=== PATIENT | female | born 1965 | race Caucasian/White ===

== ENCOUNTER → 2017-12-21 | Outpatient (CLI) | payer OTHER ==
[~2017-12-21] MED LIST: OPTIRAY 300 IV PRN; PATIENT'S ALLERGY INFO NEEDS ENTERED SCH
--- NOTE | 2017-12-21 14:22 | DIAGNOSTIC IMAGING REPORT ---
IVP W/OR W/O TOMOGRAMS CLINICAL HISTORY: HYDRONEPHROSIS COMPARISON STUDY: No previous studies for comparison. FINDINGS: Survey film of the abdomen shows no abnormal calcifications. [employer] tomographic images demonstrate a possible 6 cm cyst lower aspect left kidney. Right urinary tract opacifies appropriately. There is mild left renal hydronephrosis. No evidence for an obstructing calculus. Ureters normal in course and caliber. There is moderate bladder wall trabeculation. IMPRESSION: 1. 6 cm lower pole left renal cyst. 2. Mild left renal hydronephrosis possibly secondary to a potential UPJ type defect. 3. The upper urinary tract are otherwise unremarkable. 4. Moderate bladder trabeculation. The above report was generated using voice recognition software. It may contain grammatical, syntax or spelling errors. Electronically signed by: Bg Capellan M.D. 12/21/2017 2:15 PM Dictated Date/Time: 12/21/2017 2:13 PM
== END | disposition home or self-care (01) ==
LOC: C.RAD 12:24
PROVIDERS: ATTEND Urology
DX: N13.30 Unspecified hydronephrosis (principal); N28.1 Cyst of kidney, acquired; N32.89 Other specified disorders of bladder